=== PATIENT | female | born 1970 | race Caucasian/White ===

== ENCOUNTER 2017-02-07 08:20 | Day surgery (SDC) | payer OTHER ==
[2017-02-06 14:09] VITALS: BMI 33.5
[~2017-02-07] VITALS: Ht 160 cm; Wt 81.8 kg
[2017-02-07] VITALS (14 sets, daily range): BP systolic 107–129; BP diastolic 57–78; PULSE 76–84; RESP 12–20; Ht 160 cm; Wt 81.8 kg
[~2017-02-07 08:20] MED LIST: HYDR-762 PO; NITR-58 PO; ONDA4TAB35 PO
[2017-02-07] MEDS ORDERED: NAPR-260 PO (09:06)
[2017-02-07] MEDS ORDERED: HYDROmorphONE (0.2 MG/ML) 10ML SYG IV PRN ×3 (09:30)
[2017-02-07] MEDS ORDERED: DIPHENHYDRAMINE 50 MG INJ IV PRN (09:30)
[2017-02-07] MEDS ORDERED: ONDANSETRON 4 MG INJ IV PRN (09:30)
[2017-02-07] MEDS ORDERED: MEPERIDINE 25 MG INJ IV PRN (09:30)
[2017-02-07] MEDS ORDERED: FENTAnyl 50 MCG/ML VIAL IV PRN ×2 (09:30)
[2017-02-07] MEDS ORDERED: METOCLOPRAMIDE 10 MG INJ IV PRN (09:30)
[2017-02-07] MEDS ORDERED: FENTAnyl 50 MCG/ML VIAL ONE (10:55)
[2017-02-07] MEDS ORDERED: LIDOCAINE 2% (SDV) 5 ML INJ ONE (11:14)
[2017-02-07] MEDS ORDERED: PROPOFOL 20 ML ONE (11:14)
[2017-02-07] MEDS ORDERED: ROCURONIUM 50 MG INJ ONE (11:14)
[2017-02-07] MEDS ORDERED: SUCCINYLCHOLINE CHLORIDE 100 MG/5 ML SYG IV ONE (11:14)
[2017-02-07] MEDS ORDERED: CEFAZOLIN 1 GM INJ ONE (11:14)
[2017-02-07] MEDS ORDERED: SUGAMMADEX SODIUM 200 MG/2 ML VIAL IV ONE (11:14)
[2017-02-07] MEDS ORDERED: BUPIVACAINE 0.5% (SDV) 30 ML INJ ONE ×2 (11:24→11:30)
--- NOTE | 2017-02-09 20:05 | OPR ---
DATE OF OPERATION: 02/07/2017 PREOPERATIVE DIAGNOSIS: Carpal tunnel syndrome, left. POSTOPERATIVE DIAGNOSIS: Carpal tunnel syndrome, left. OPERATIVE PROCEDURE: 1. Carpal tunnel release, left. 2. Release of a small segment of flexor fascia, lower left forearm. 3. Gentle neurolysis of median nerve to it's motor branch. 4. Infiltration of skin edges with total of 8 mL of 0.5% Marcaine without epinephrine and application of volar cast splint. SURGEON: Uche Hernandez MD. ANESTHESIOLOGIST: Dr. Quarles. ANESTHESIA: General. DETAIL: She was brought to the operating room, placed on the operative table in supine position. General anesthesia administered by anesthesiologist, a tourniquet cuff was placed in proximal segment of left arm. After general anesthesia, the patient also was given a gram of Ancef intravenously. Prepping and draping of left upper extremity were done. Exsanguination was done using elastic Esmarch bandage. Tourniquet was inflated to 250 mmHg. Marking pen was used to outline site of incision on the mid volar from flexor crease of the wrist to mid palm region. The skin was opened. Small bleeders were controlled. The incision was carried down until the transverse carpal ligament was brought into the view. Two small self-retaining retractors were used to expose surgical site. Transverse carpal ligament was identified distally and traced proximally; protecting metal blade was placed under the transverse carpal ligament and this structure was incised totally along with a small segment of flexor fascia lower left forearm. Full release of median nerve was checked and also the median nerve was identified and it was traced distally and doing gentle neurolysis to the motor branch was achieved. No other pathology was encountered. Irrigation was done. Closure was done using 4-0 nylon. Skin edges were infiltrated with a total of 10 mL of Marcaine 0.5% without epinephrine, a sterile dressing was applied including Xeroform, fluffs and cast padding. A 3 inch plaster of Mily roll was used in form of cast splint on top of cast padding, wrapped over with a bias, reduced in neutral position. Tourniquet time was 22 minutes. There were no intraoperative or early postop complications. She was transferred to recovery room in satisfactory condition. Dictated By: UCHE HERNANDEZ MD, SA/ANNE Conf#: [id number] [facility]#: [id number] MTDD
== END 2017-02-07 14:24 | disposition home or self-care (01) ==
LOC: SDS 08:20
PROVIDERS: ATTEND Orthopaedic Surgery
DX: G56.02 Carpal tunnel syndrome, left upper limb (principal); E66.01 Morbid (severe) obesity due to excess calories
CPT/HCPCS: 64721; 64727; J0690; J1170; J3010